=== PATIENT | female | born 1965 | race Two or more races ===

== ENCOUNTER 2021-03-24 04:53 | Emergency (ER) | payer OTHER ==
[~2021-03-24] VITALS: Ht 175.3 cm; Wt 72.6 kg
[2021-03-24 05:45] LABS: Urine Bacteria FEW /hpf (None Seen); Urine Blood Negative /uL (Negative); Urine Mucus FEW (None Seen); Urine Specific Gravity 1.031 (1.001-1.035); Urine WBC 3 /hpf (0 - 5)
[2021-03-24 05:54] LABS: Basophils # (auto) 0.1 10 ^3/uL (0-0.2); Eosinophils # (auto) 0.2 10 ^3/uL (0-0.8); Lymphocytes # (auto) 0.3 10 ^3/uL (0.4-5.4); Mean Corpuscular Hemoglobin 35.1 pg (28.0-32.0); Mean Corpuscular Hgb Conc. 35.8 g/dL (32.0-36.0); Monocytes # (auto) 0.3 10 ^3/uL (0-1.3)
[2021-03-24 05:56] LABS: Basophils % (auto) 0.7 % (0.0-2.0); Eosinophils % (auto) 2.1 % (0.0-7.0); Hematocrit 42.9 % (36.0-46.0); Hemoglobin 15.4 g/dL (12.2-16.2); Lymphocytes % (auto) 3.5 % (10.0-50.0); Mean Corpuscular Volume 97.9 fL (80.0-100.0); Monocytes % (auto) 3.6 % (0.0-12.0); Neutrophils # (auto) 8.6 10 ^3/uL (1.6-8.6); Neutrophils % (auto) 90.1 % (37.0-80.0); Red Blood Cells 4.38 10^6/uL (4.0-5.20); White Blood Cell 9.5 10^3/uL (4.4-10.8)
[2021-03-24 06:22] LABS: Alanine Aminotransferase 25 U/L (13-56); Albumin 3.9 g/dL (3.4-5.0); Anion Gap 7 (5-15); Aspartate Aminotransferase 19 U/L (15-37); BUN/Creatinine Ratio 24.1; Blood Urea Nitrogen 13 mg/dL (7-18); Calcium 7.9 mg/dL (8.5-10.1); Carbon Dioxide 23 mmol/L (21-32); Chloride 104 mmol/L (98-107); GFR African American 151 mL/min; GFR Non-African American 125 mL/min; Glucose 115 mg/dL (74-106); Magnesium 1.9 mg/dL (1.6-2.6); Potassium 3.9 mmol/L (3.5-5.1); Sodium 134 mmol/L (136-145)
[2021-03-24 06:29] LABS: Alkaline Phosphatase 67 U/L (45-117); Bilirubin, Total 0.8 mg/dL (0.2-1.0); Total Protein 7.1 g/dL (6.4-8.2)
[2021-03-24] MEDS ORDERED: ASPirin 81 mg TAB PO ONE (07:15)
[2021-03-24 07:27] VITALS: BP 112/77
== END 2021-03-24 08:40 | disposition home or self-care (01) ==
LOC: ER 04:53 → EDBD 04:53 → ER 08:39
DX: R07.89 Other chest pain (principal); F41.9 Anxiety disorder, unspecified; F17.210 Nicotine dependence, cigarettes, uncomplicated
CPT/HCPCS: 36415; 71045; 80053; 81001; 81025; 83735; 83880; 84443; 84484; 85025; 93005

== ENCOUNTER 2022-02-16 10:13 | Emergency (ER) | payer OTHER ==
[~2022-02-16] VITALS: Ht 160 cm; Wt 59.0 kg
[2022-02-16] MEDS ORDERED: SODIUM CHLORIDE 0.9% 1,000 ML IV ONE (10:30)
[2022-02-16 10:37] VITALS: BP 132/83
[2022-02-16] MEDS: KETOROLAC TROMETH 30 MG/ML 1ML VIAL IV ONE ×2 (10:45→11:06)
[2022-02-16] MEDS: ONDANSETRON HCL 4 MG/2 ML VIAL IV ONE ×2 (10:45→11:06)
[2022-02-16 10:57] LABS: Urine Amorphous Crystal FEW /hpf (None Seen); Urine Bacteria FEW /hpf (None Seen); Urine Blood Negative /uL (Negative); Urine Specific Gravity 1.016 (1.001-1.035); Urine WBC 3 /hpf (0 - 5)
[2022-02-16 11:13] LABS: Basophils # (auto) 0 10 ^3/uL (0-0.2); Basophils % (auto) 0.6 % (0.0-2.0); Eosinophils # (auto) 0.4 10 ^3/uL (0-0.8); Eosinophils % (auto) 4.3 % (0.0-7.0); Hematocrit 42.2 % (36.0-46.0); Hemoglobin 14.3 g/dL (12.2-16.2); Lymphocytes # (auto) 1.1 10 ^3/uL (0.4-5.4); Mean Corpuscular Hemoglobin 33.9 pg (28.0-32.0); Mean Corpuscular Hgb Conc. 33.8 g/dL (32.0-36.0); Mean Corpuscular Volume 100.1 fL (80.0-100.0); Monocytes # (auto) 0.7 10 ^3/uL (0-1.3); Monocytes % (auto) 7.9 % (0.0-12.0); Neutrophils # (auto) 6.7 10 ^3/uL (1.6-8.6); Neutrophils % (auto) 75.2 % (37.0-80.0); Nucleated Red Blood Cells % 0.1 %; Red Blood Cells 4.22 10^6/uL (4.0-5.20); Red Cell Distribution Width 13.6 % (11.8-14.3); White Blood Cell 8.9 10^3/uL (4.4-10.8)
[2022-02-16 11:22] LABS: Albumin 3.6 g/dL (3.4-5.0); Calcium 8.8 mg/dL (8.5-10.1); Potassium 4.5 mmol/L (3.5-5.1)
[2022-02-16 11:27] LABS: BUN/Creatinine Ratio 21.9; Bilirubin, Total 0.4 mg/dL (0.2-1.0); Total Protein 7.1 g/dL (6.4-8.2)
[2022-02-16] MEDS ORDERED: NAPR500T31 PO (12:03)
[2022-02-16] MEDS ORDERED: DOCU-94 PO (12:03)
== END 2022-02-16 12:11 | disposition home or self-care (01) ==
LOC: EDBD 10:13 → ER 10:13
DX: N83.202 Unspecified ovarian cyst, left side (principal); K59.00 Constipation, unspecified; F17.210 Nicotine dependence, cigarettes, uncomplicated
CPT/HCPCS: 36415; 74176; 80053; 81001; 83690; 85025; 93005; 96361; 96374; 96375; 99285; J1885; J2405; J7030